=== PATIENT | male | born 1995 | race African-American/Black ===

== ENCOUNTER 2023-01-18 07:22 | Emergency (ER) | payer MEDICAID ==
[~2023-01-18] VITALS: Ht 182.9 cm; Wt 94.0 kg
[2023-01-18 07:32] VITALS: TEMP 98.7; O2SAT 100
[2023-01-18 07:51] LABS: BASOPHILS % 0.6 % (0.0-2.0); EOSINOPHILS % 1.4 % (0.0-5.0); HEMATOCRIT. 46.2 % (42.0-52.0); LYMPHOCYTES % 21.4 % (20.0-50.0); MEAN CORPUSCULAR HEMOGLOBIN 31.8 pg (28.0-32.0); MEAN CORPUSCULAR HGB CONC 32.5 g/dL (31.0-37.0); MEAN CORPUSCULAR VOLUME 97.9 fL (80.0-94.0); MEAN PLATELET VOLUME 8.5 fl (7.4-10.4); MONOCYTES % 8.5 % (2.0-8.0); NEUTROPHILS % 68.1 % (40.0-76.0); PLATELET 269 x1000/uL (130-400); RED BLOOD CELL COUNT 4.72 mill/uL (4.7-6.1); RED CELL DISTRIBUTION WIDTH 12.8 % (11.6-14.6); WHITE BLOOD COUNT 4.2 x1000/uL (4.5-11.0)
[2023-01-18 08:08] LABS: ALANINE AMINOTRANSFERASE 16 IU/L (10-49); ALBUMIN 4.8 g/dL (3.2-4.8); ASPARTATE AMINOTRANSFERASE 23 IU/L (<34); BILIRUBIN TOTAL 0.9 mg/dL (0.1-1.0); CALCIUM 9.8 mg/dL (8.7-10.4); CARBON DIOXIDE 26 mEq/L (21-32); CHLORIDE 103 mEq/L (98-107); GLUCOSE 107 mg/dL (70-105); POTASSIUM 3.9 mEq/L (3.5-5.1); PROTEIN TOTAL 8.1 g/dL (6.0-8.3); SODIUM 138 mEq/L (136-145); UREA NITROGEN BLOOD 6 mg/dL (9-23)
[2023-01-18] MEDS ORDERED: ONDANSETRON 4MG ODT PO ONE (08:30)
[2023-01-18 08:51] LABS: CLARITY URINE TURBID (CLEAR); COLOR URINE YELLOW (YELLOW); GLUCOSE URINE NEGATIVE (NEGATIVE); KETONES URINE TRACE (NEGATIVE); LEUKOCYTE ESTERASE URINE NEGATIVE (NEGATIVE); NITRITE URINE NEGATIVE (NEGATIVE); OCCULT BLOOD URINE NEGATIVE (NEGATIVE); PROTEIN URINE 1+ (NEGATIVE); SPECIFIC GRAVITY URINE 1.028 (1.005-1.030)
[2023-01-18 11:08] LABS: AMORPHOUS SEDIMENT URINE 4+ /lpf
[2023-01-18 11:12] LABS: RBC URINE NONE SEEN /hpf (0-2); SQUAMOUS EPITHELIAL CELL URINE RARE /lpf (RARE/1+); WBC URINE NONE SEEN /hpf (0-2)
[2023-01-18 11:13] LABS: BACTERIA URINE 2+
[2023-01-18] MEDS ORDERED: ONDA4TAB11 PO (11:35)
[2023-01-18] MEDS ORDERED: PROT40 MT (11:35)
[2023-01-18 11:47] VITALS: BP 130/71; PULSE 77; RESP 19
[2023-01-18] MEDS ORDERED: IOHEXOL-300 100 ML BOTTLE ONE (12:54)
== END 2023-01-18 11:50 | disposition home or self-care (01) ==
LOC: ER 07:22
DX: K29.70 Gastritis, unspecified, without bleeding (principal)
CPT/HCPCS: 80053; 81003; 83690; 85025; 36415; 74177; 99285; Q9967; Q0162; Z7610 ×2